=== PATIENT | male | born 1965 | race Caucasian/White ===

== ENCOUNTER → 2017-10-02 06:19 | Outpatient (CLI) | payer MEDICARE, SELFPAY ==
--- NOTE | 2017-10-02 06:23 | NM_ITS ---
CARDIOLITE SPECT MYOCARDIAL PERFUSION SCAN, REST AND STRESS: EXERCISE STRESS [facility] REVIEW QGS EF AND WALL MOTION EVALUATION: QPS - PERFUSION EVALUATION HISTORY: Chest pain, SOB, HTN, CAD, Tobacco use DOSE: 10.64 mCi technetium 99m mibi intravenously at rest followed by 32.1 mCi technetium 99m mibi following the intravenous ministration of 0.4 mg of Lexiscan. Resting blood pressure is 147/94. Stress blood pressure 148/85. FINDINGS: Ejection fraction is calculated to be 45%. SPECT images: Stress images reveal decreased activity throughout the inferior and lateral wall while rest images reveal significant improvement in the lateral wall with persistent decrease in the inferior wall. Gated images calculated ejection fraction of 45%. With inferior and lateral wall hypokinesis. This is a high risk abnormal stress test IMPRESSION: Previous transmural myocardial infarction involving the inferior wall without reversible ischemia with a large amount of increased reversible ischemia mixed with the nontransmural myocardial lateral infarction. Mildly reduced ejection fraction with regional wall motion abnormality
--- NOTE | 2017-10-02 07:27 | HMH.ITSHM ---
ATORVASTATIN OMEPRAZOLE ASA LISINOPRIL AMLODIPINE METOPROLOL GABAPENTIN HYDROCODONE
== END ==
PROVIDERS: Family Provider Physician Assistant; PCP Physician Assistant; Visit Provider Internal Medicine
DX: R07.9 Chest pain, unspecified (principal); I25.118 Atherosclerotic heart disease of native coronary artery with other forms of angina pectoris; M54.42 Lumbago with sciatica, left side; K21.9 Gastro-esophageal reflux disease without esophagitis; Z95.5 Presence of coronary angioplasty implant and graft; F17.200 Nicotine dependence, unspecified, uncomplicated
CPT/HCPCS: 78452; 93017; A9502; J2785

== ENCOUNTER → 2018-01-01 10:05 | Outpatient (REF) | payer MEDICARE, SELFPAY ==
[2018-01-01 14:39] LABS: Amphetamine/Metha Screen,Urine Negative ng/mL (<1000); Barbiturates Screen,Urine Negative ng/mL (<200); Benzodiazepines Screen,Urine Negative ng/mL (200); Cannabinoid Screen,Urine Negative ng/mL (<50); Cocaine Screen,Urine Negative ng/g (<300); Methadone Screen,Urine Negative ng/mL (<300); Opiate Screen,Urine Positive ng/mL (<300); Phencyclidine Screen,Urine Negative ng/mL (<25)
== END ==
LOC: LAB 10:05
PROVIDERS: Visit Provider Physician Assistant
DX: Z79.899 Other long term (current) drug therapy (principal)
CPT/HCPCS: 80305

== ENCOUNTER → 2018-03-28 14:17 | Outpatient (REF) | payer MEDICARE, SELFPAY ==
[2018-03-28 18:04] LABS: Basophils # 0.1 K/mm3 (0-0.2); Basophils % 0.8 % (0.1-2.0); Eosinophils # 0.1 K/mm3 (0.0-0.4); Eosinophils % 1.1 % (0.1-12.0); Hematocrit 41.9 % (42.0-52.0); Hemoglobin 13.8 g/dL (14.1-18.0); Lymphocytes # 2.4 K/mm3 (0.7-4.5); Lymphocytes % 26.8 K/mm3 (10-50); Mean Corpuscular Hemoglobin 29.4 pg (27.0-31.2); Mean Corpuscular Volume 89.2 fl (80-94); Monocytes # 0.5 K/mm3 (0.1-1.0); Monocytes % 5.2 % (1.7-9.3); Neutrophils # 5.9 K/mm3 (1.8-7.8); Neutrophils % 66.1 % (37.0-80.0); Platelet Count 210 K/mm3 (142-424); Red Cell Distribution Width 13.6 % (11.5-17.5); White Blood Count 8.9 K/mm3 (4.8-10.8)
[2018-03-28 18:23] LABS: Alanine Aminotransferase 25 U/L (12-78); Albumin Level 3.8 gm/dL (3.4-5.0); Albumin/Globulin Ratio 1.4 (1.1-1.8); Alkaline Phosphatase 92 U/L (46-116); Anion Gap 13.1 mEq/L (5-15); Aspartate Amino Transferase 14 U/L (15-37); Bilirubin,Total 0.3 mg/dL (0.2-1.0); Blood Urea Nitrogen 11 mg/dL (7-18); Calcium 8.5 mg/dL (8.5-10.1); Carbon Dioxide 27 mmol/L (21.0-32.0); Chloride 108 mmol/L (98-107); Chol/HDL Ratio 4.5 (1-3.5); Cholesterol 147 mg/dL (140-200); Creatinine,Serum 0.89 mg/dL (0.70-1.30); Estimated Glomerular Filt Rate 89 ml/min (>60); GFR (African American) 108 ML/MIN (>60); Globulin 2.7 gm/dl (1.3-3.2); Glucose 120 mg/dL (74-106); HDL Cholesterol 33 mg/dL (27-67); LDL Cholesterol 70 mg/dL (0-130); Potassium 4.1 mmoL/L (3.5-5.1); Sodium 144 mmol/L (136-145); Thyroid Stimulating Hormone 0.78 uIU/ml (0.358-3.740); Total Protein,Serum 6.5 gm/dL (6.4-8.2); Triglycerides 219 mg/dL (30-200); VLDL Cholesterol 44 mg/dL (0-40)
[2018-03-30 19:11] LABS: Vitamin D 25 Hydroxy 27.8 ng/mL (30.0-100.0)
== END ==
LOC: LAB 14:17
PROVIDERS: Visit Provider Physician Assistant
DX: I10 Essential (primary) hypertension (principal); E78.5 Hyperlipidemia, unspecified; E55.9 Vitamin D deficiency, unspecified
CPT/HCPCS: 80053; 80061; 82652; 84436; 84443; 85025

== ENCOUNTER → 2018-05-23 19:46 | Outpatient (CLI) | payer MEDICARE, SELFPAY ==
[2018-05-23 21:20] LABS: Amphetamine/Metha Screen,Urine Negative ng/mL (<1000); Barbiturates Screen,Urine Negative ng/mL (<200); Benzodiazepines Screen,Urine Negative ng/mL (<200); Cannabinoid Screen,Urine Negative ng/mL (<50); Cocaine Screen,Urine Negative ng/mL (<300); Methadone Screen,Urine Negative ng/mL (<300); Opiate Screen,Urine Positive ng/mL (<300); Phencyclidine Screen,Urine Negative ng/mL (<25)
== END ==
PROVIDERS: Visit Provider Physician Assistant
DX: Z79.899 Other long term (current) drug therapy (principal)
CPT/HCPCS: 80305

== ENCOUNTER → 2018-06-20 19:05 | Outpatient (CLI) | payer MEDICARE, SELFPAY | PROVIDERS: Visit Provider Physician Assistant | DX: J02.9 Acute pharyngitis, unspecified (principal) ==

== ENCOUNTER → 2018-09-12 18:44 | Outpatient (CLI) | payer MEDICARE, SELFPAY ==
[2018-09-12 19:04] LABS: Basophils # 0.1 K/mm3 (0-0.2); Basophils % 0.8 % (0.1-2.0); Eosinophils # 0.1 K/mm3 (0.0-0.4); Eosinophils % 1.3 % (0.1-12.0); Hematocrit 43.5 % (42.0-52.0); Hemoglobin 14.6 g/dL (14.1-18.0); Lymphocytes % 35.3 % (10-50); Mean Corpuscular HGB Conc 33.5 g/dL (31.8-35.4); Mean Corpuscular Hemoglobin 29.6 pg (27.0-31.2); Mean Corpuscular Volume 88.4 fl (80-94); Mean Platelet Volume 10.6 fl (7.4-10.4); Monocytes # 0.4 K/mm3 (0.1-1.0); Monocytes % 4.8 % (1.7-9.3); Neutrophils # 4.9 K/mm3 (1.8-7.8); Neutrophils % 57.7 % (37.0-80.0); Platelet Count 239 K/mm3 (142-424); Red Blood Count 4.92 M/mm3 (4.60-6.20); Red Cell Distribution Width 13.9 % (11.5-17.5); White Blood Count 8.5 K/mm3 (4.8-10.8)
[2018-09-12 19:52] LABS: Alanine Aminotransferase 30 U/L (12-78); Albumin Level 3.9 gm/dL (3.4-5.0); Albumin/Globulin Ratio 1.3 (1.1-1.8); Alkaline Phosphatase 87 U/L (46-116); Anion Gap 15.2 mEq/L (5-15); Aspartate Amino Transferase 14 U/L (15-37); Bilirubin,Total 0.2 mg/dL (0.2-1.0); Blood Urea Nitrogen 10 mg/dL (7-18); Calcium 8.6 mg/dL (8.5-10.1); Carbon Dioxide 26 mmol/L (21.0-32.0); Chloride 105 mmol/L (98-107); Chol/HDL Ratio 5.6 (1-3.5); Cholesterol 156 mg/dL (140-200); Creatinine,Serum 0.82 mg/dL (0.70-1.30); Estimated Glomerular Filt Rate 98 ml/min (>60); GFR (African American) 119 ML/MIN (>60); Glucose 92 mg/dL (74-106); HDL Cholesterol 28 mg/dL (27-67); LDL Cholesterol 66 mg/dL (0-130); Potassium 4.2 mmoL/L (3.5-5.1); Sodium 142 mmol/L (136-145); T4 (Thyroxine) 9.2 ug/dl (4.7-13.3); Thyroid Stimulating Hormone 0.74 uIU/ml (0.358-3.740); Total Protein,Serum 6.9 gm/dL (6.4-8.2); Triglycerides 309 mg/dL (30-200); VLDL Cholesterol 62 mg/dL (0-40)
[2018-09-12 20:43] LABS: Amphetamine/Metha Screen,Urine Negative ng/mL (<1000); Barbiturates Screen,Urine Negative ng/mL (<200); Benzodiazepines Screen,Urine Negative ng/mL (<200); Cannabinoid Screen,Urine Negative ng/mL (<50); Cocaine Screen,Urine Negative ng/mL (<300); Methadone Screen,Urine Negative ng/mL (<300); Opiate Screen,Urine Positive ng/mL (<300); Phencyclidine Screen,Urine Negative ng/mL (<25)
[2018-09-15 10:14] LABS: Vitamin D 25 Hydroxy 25.3 ng/mL (30.0-100.0)
== END ==
PROVIDERS: Visit Provider Physician Assistant
DX: I10 Essential (primary) hypertension (principal); E78.5 Hyperlipidemia, unspecified; E55.9 Vitamin D deficiency, unspecified; Z79.899 Other long term (current) drug therapy
CPT/HCPCS: 80053; 80061; 80305; 82652; 84436; 84443; 85025

== ENCOUNTER → 2019-07-30 14:07 | Outpatient (CLI) | payer MEDICARE, SELFPAY ==
--- NOTE | 2019-07-30 14:12 | XR_ITS ---
PROCEDURE: XR CHEST 2V CLINICAL HISTORY: tob dep COMPARISON: No exams were available for comparison FINDINGS: Heart size is borderline without CHF. The lungs are clear without infiltrates, suspicious nodules, or pleural effusions. No acute bony abnormalities. IMPRESSION: No acute findings. Dictated by: Burke Pierre 07/30/2019 14:51 Electronically signed by Burke Pierre in [facility] 07/30/2019 14:51
== END ==
PROVIDERS: PCP Physician Assistant; Visit Provider Physician Assistant
DX: E78.5 Hyperlipidemia, unspecified (principal); F17.200 Nicotine dependence, unspecified, uncomplicated; I10 Essential (primary) hypertension; I25.10 Atherosclerotic heart disease of native coronary artery without angina pectoris
CPT/HCPCS: 71046

== ENCOUNTER → 2020-05-20 16:05 | Outpatient (CLI) | payer MEDICARE, SELFPAY ==
[2020-05-20 18:07] LABS: Basophils # 0.1 K/mm3 (0-0.2); Eosinophils # 0.1 K/mm3 (0.0-0.4); Eosinophils % 0.9 % (0.1-12.0); Hematocrit 46.5 % (42.0-52.0); Hemoglobin 14.8 g/dL (14.1-18.0); Lymphocytes # 2.7 K/mm3 (0.7-4.5); Lymphocytes % 31.3 % (10-50); Mean Corpuscular HGB Conc 31.8 g/dL (31.8-35.4); Mean Corpuscular Hemoglobin 28.6 pg (27.0-31.2); Mean Corpuscular Volume 89.8 fl (80-94); Monocytes # 0.5 K/mm3 (0.1-1.0); Monocytes % 5.9 % (1.7-9.3); Neutrophils # 5.3 K/mm3 (1.8-7.8); Platelet Count 252 K/mm3 (142-424); Red Blood Count 5.18 M/mm3 (4.60-6.20); Red Cell Distribution Width 13.5 % (11.5-17.5); White Blood Count 8.7 K/mm3 (4.8-10.8)
[2020-05-20 18:10] LABS: Hemoglobin A1C 5.8 % (4.0-6.0)
[2020-05-20 18:11] LABS: Alanine Aminotransferase 25 U/L (12-78); Albumin Level 4.5 g/dl (3.5-5.0); Albumin/Globulin Ratio 1.7 (1.1-1.8); Alkaline Phosphatase 77 U/L (38-126); Anion Gap 13.6 mEq/L (5-15); Aspartate Amino Transferase 28 U/L (17-59); Bilirubin,Total 0.3 mg/dl (0.2-1.3); Blood Urea Nitrogen 13 mg/dl (9-20); Calcium 9.2 mg/dl (8.4-10.2); Carbon Dioxide 27 mmol/L (22.0-30.0); Chloride 102 mmol/L (98-107); Chol/HDL Ratio 5.4 (1-3.5); Cholesterol 178 mg/dl (140-200); Estimated Glomerular Filt Rate 78 ml/min (>60); GFR (African American) 94 ML/MIN (>60); Globulin 2.7 g/dL (1.3-3.2); Glucose 94 mg/dl (74-100); HDL Cholesterol 33 mg/dl (40-60); Potassium 4.6 mmoL/L (3.5-5.1); Sodium 138 mmol/L (136-145); Total Protein,Serum 7.2 g/dl (6.3-8.2); Triglycerides 278 mg/dl (30-150); VLDL Cholesterol 56 mg/dL (0-40)
[2020-05-20 18:23] LABS: Direct LDL Cholesterol 113.27 mg/dL (100-129)
[2020-05-20 18:28] LABS: Free T4 (Free Thyroxine) 1.03 ng/dl (0.78-2.19)
[2020-05-20 18:29] LABS: 25-OH Vitamin D, Total 43.3 ng/mL (30-100)
[2020-05-20 18:42] LABS: Thyroid Stimulating Hormone 1.08 uIU/mL (0.465-4.68)
[2020-05-22 10:36] LABS: PSA, Free 0.21 ng/mL; Prostate Specific Ag 0.5 ng/mL (0.0-4.0)
== END ==
PROVIDERS: Visit Provider Physician Assistant
DX: E55.9 Vitamin D deficiency, unspecified (principal); R06.00 Dyspnea, unspecified; F17.200 Nicotine dependence, unspecified, uncomplicated; I11.9 Hypertensive heart disease without heart failure; Z79.899 Other long term (current) drug therapy; M50.20 Other cervical disc displacement, unspecified cervical region
CPT/HCPCS: 80053; 80061; 82306; 83036; 84153; 84154; 84439; 84443; 85025

== ENCOUNTER → 2020-07-28 14:07 | Outpatient (CLI) | payer MEDICARE, SELFPAY ==
--- NOTE | 2020-07-28 14:13 | XR_ITS ---
PROCEDURE: XR CHEST 2V CLINICAL HISTORY: tobacco use Heart disease COMPARISON: DX XR CHEST 2V from 07/30/2019 FINDINGS: Mild cardiomegaly without failure. The lungs are clear without infiltrates, suspicious nodules, or pleural effusions. There is an anterior cervical bone plate IMPRESSION: Mild cardiomegaly. No acute finding Dictated by: Marcus Juarez MD 07/28/2020 14:37 Marcus Juarez MD in [facility] 07/28/2020 14:37
== END ==
PROVIDERS: PCP Physician Assistant; Visit Provider Nurse Practitioner Family
DX: I25.10 Atherosclerotic heart disease of native coronary artery without angina pectoris (principal); Z72.0 Tobacco use
CPT/HCPCS: 71046

== ENCOUNTER → 2021-01-06 17:57 | Outpatient (CLI) | payer MEDICARE, SELFPAY ==
[2021-01-06 20:09] LABS: Opiate Screen,Urine Positive ng/ml (<300)
[2021-01-06 20:10] LABS: Phencyclidine Screen,Urine Negative ng/ml (<25)
[2021-01-06 20:13] LABS: Amphetamine/Metha Screen,Urine Negative ng/ml (<1000)
[2021-01-06 20:14] LABS: Barbiturates Screen,Urine Negative ng/ml (<200); Benzodiazepines Screen,Urine Negative ng/ml (<200)
[2021-01-06 20:15] LABS: Cannabinoid Screen,Urine Negative ng/ml (<50)
[2021-01-06 20:16] LABS: Cocaine Screen,Urine Negative ng/ml (<300)
[2021-01-06 20:21] LABS: Methadone Screen,Urine Negative ng/ml (<300)
== END ==
PROVIDERS: Visit Provider Physician Assistant
DX: Z79.899 Other long term (current) drug therapy (principal)
CPT/HCPCS: 80305

== ENCOUNTER → 2021-04-28 18:21 | Outpatient (CLI) | payer MEDICARE, SELFPAY ==
[2021-04-28 19:25] LABS: Amphetamine/Metha Screen,Urine Negative ng/ml (<1000); Benzodiazepines Screen,Urine Negative ng/ml (<200)
[2021-04-28 19:26] LABS: Barbiturates Screen,Urine Negative ng/ml (<200); Cannabinoid Screen,Urine Negative ng/ml (<50)
[2021-04-28 19:27] LABS: Cocaine Screen,Urine Negative ng/ml (<300)
[2021-04-28 19:28] LABS: Methadone Screen,Urine Negative ng/ml (<300); Opiate Screen,Urine Positive ng/ml (<300)
[2021-04-28 19:29] LABS: Phencyclidine Screen,Urine Negative ng/ml (<25)
== END ==
PROVIDERS: Visit Provider Physician Assistant
DX: Z79.899 Other long term (current) drug therapy (principal)
CPT/HCPCS: 80305

== ENCOUNTER → 2021-06-22 13:57 | Outpatient (CLI) | payer MEDICARE, SELFPAY ==
[2021-06-22 16:10] LABS: Phencyclidine Screen,Urine Negative ng/ml (<25)
[2021-06-22 16:19] LABS: Amphetamine/Metha Screen,Urine Negative ng/ml (<1000)
[2021-06-22 16:21] LABS: Cannabinoid Screen,Urine Negative ng/ml (<50)
[2021-06-22 16:22] LABS: Barbiturates Screen,Urine Negative ng/ml (<200)
[2021-06-22 16:23] LABS: Benzodiazepines Screen,Urine Negative ng/ml (<200); Opiate Screen,Urine Positive ng/ml (<300)
[2021-06-22 16:24] LABS: Cocaine Screen,Urine Negative ng/ml (<300); Methadone Screen,Urine Negative ng/ml (<300)
== END ==
PROVIDERS: Visit Provider Emergency Medicine
DX: Z79.899 Other long term (current) drug therapy (principal)
CPT/HCPCS: 80305

== ENCOUNTER → 2021-08-20 16:49 | Outpatient (CLI) | payer MEDICARE, SELFPAY ==
[2021-08-20 13:49] LABS: Amphetamine/Metha Screen,Urine Negative ng/ml (<1000)
[2021-08-20 13:50] LABS: Barbiturates Screen,Urine Negative ng/ml (<200)
[2021-08-20 13:51] LABS: Benzodiazepines Screen,Urine Negative ng/ml (<200); Cannabinoid Screen,Urine Negative ng/ml (<50)
[2021-08-20 13:52] LABS: Cocaine Screen,Urine Negative ng/ml (<300)
[2021-08-20 13:53] LABS: Methadone Screen,Urine Negative ng/ml (<300); Opiate Screen,Urine Positive ng/ml (<300)
[2021-08-20 13:54] LABS: Phencyclidine Screen,Urine Negative ng/ml (<25)
== END ==
PROVIDERS: Visit Provider Emergency Medicine
DX: Z79.899 Other long term (current) drug therapy (principal)
CPT/HCPCS: 80305

== ENCOUNTER → 2021-10-11 15:51 | Outpatient (CLI) | payer MEDICARE, SELFPAY ==
[2021-10-11 13:34] LABS: Basophils # 0.1 K/mm3 (0-0.2); Basophils % 0.7 % (0.1-2.0); Eosinophils # 0.1 K/mm3 (0.0-0.4); Eosinophils % 0.9 % (0.1-12.0); Hematocrit 44.6 % (42.0-52.0); Hemoglobin 14.7 g/dL (14.1-18.0); Lymphocytes % 24.2 % (10-50); Mean Corpuscular HGB Conc 32.9 g/dL (31.8-35.4); Mean Corpuscular Hemoglobin 30.8 pg (27.0-31.2); Mean Corpuscular Volume 93.6 fl (80-94); Mean Platelet Volume 11.6 fl (7.4-10.4); Monocytes # 0.6 K/mm3 (0.1-1.0); Neutrophils # 8.5 K/mm3 (1.8-7.8); Neutrophils % 69.2 % (37.0-80.0); Platelet Count 251 K/mm3 (142-424); Red Blood Count 4.77 M/mm3 (4.60-6.20); Red Cell Distribution Width 13.7 % (11.5-17.5); White Blood Count 12.2 K/mm3 (4.8-10.8)
[2021-10-11 13:44] LABS: Alanine Aminotransferase 21 U/L (12-78); Albumin Level 4.6 g/dl (3.5-5.0); Alkaline Phosphatase 66 U/L (38-126); Anion Gap 12.5 mEq/L (5-15); Aspartate Amino Transferase 29 U/L (17-59); Bilirubin,Total 0.4 mg/dl (0.2-1.3); Blood Urea Nitrogen 10 mg/dl (9-20); Carbon Dioxide 27 mmol/L (22.0-30.0); Chloride 106 mmol/L (98-107); Chol/HDL Ratio 4.1 (1-3.5); Cholesterol 153 mg/dl (140-200); Estimated Glomerular Filt Rate 77 ml/min (>60); GFR (African American) 94 ML/MIN (>60); Globulin 2.3 g/dL (1.3-3.2); Glucose 107 mg/dl (74-100); HDL Cholesterol 37 mg/dl (40-60); Potassium 4.5 mmoL/L (3.5-5.1); Sodium 141 mmol/L (136-145); Total Protein,Serum 6.9 g/dl (6.3-8.2); Triglycerides 165 mg/dl (30-150); VLDL Cholesterol 33 mg/dL (0-40)
[2021-10-11 13:55] LABS: Direct LDL Cholesterol 82.58 mg/dL (100-129)
[2021-10-11 13:59] LABS: 25-OH Vitamin D, Total 37.9 ng/mL (30-100)
[2021-10-11 14:17] LABS: Prostate Specific Ag Screen 0.5 ng/ml (0.0-4.0); Thyroid Stimulating Hormone 0.56 uIU/mL (0.465-4.68)
[2021-10-11 14:36] LABS: Vitamin B12 321 pg/mL (239-931)
== END ==
PROVIDERS: Visit Provider Physician Assistant
DX: E55.9 Vitamin D deficiency, unspecified (principal); Z00.00 Encounter for general adult medical examination without abnormal findings; I11.9 Hypertensive heart disease without heart failure; Z12.5 Encounter for screening for malignant neoplasm of prostate; F17.200 Nicotine dependence, unspecified, uncomplicated; R06.00 Dyspnea, unspecified
CPT/HCPCS: 80053; 80061; 82306; 82607; 84443; 85025; G0103

== ENCOUNTER 2022-02-22 14:00 | Outpatient (RCR) | payer MEDICARE, SELFPAY | END 2022-03-29 09:43 | disposition home or self-care (01) | LOC: PT.CARL 14:00 | PROVIDERS: PCP Physician Assistant; Visit Provider Physician Assistant | DX: M54.2 Cervicalgia (principal); M54.12 Radiculopathy, cervical region | CPT/HCPCS: 20560; 97010; 97014; 97110; 97140; 97163; 97164; G0283 ==

== ENCOUNTER → 2022-05-04 07:59 | Outpatient (CLI) | payer MEDICARE, SELFPAY ==
--- NOTE | 2022-05-04 07:59 | MR_ITS ---
FINAL REPORT CLINICAL HISTORY: neck pain radiating down right arm. prior hx neck surgery 2010. neck pain. right arm tingling for 10 months. no injury or trauma. FINDINGS: Multiplanar MR imaging of the cervical spine was performed without contrast. On the sagittal T2-weighted images, disc degeneration is seen throughout. There is fusion of C3-4 and C5-C7. There is no evidence of fracture. The vertebral alignment is normal. The cervical spinal cord has an unremarkable appearance without evidence of mass, edema or syrinx. The cervicomedullary junction is normal. C2-3: An annular bulge is present. There is no significant canal stenosis or neural foraminal narrowing. C3-4: Level is fused. There is mild right neural foraminal narrowing. C4-5: An annular bulge and uncovertebral osteophytes are present. There is severe right and moderate left neural foraminal narrowing. There is mild central canal stenosis with an AP diameter of the thecal sac of 7 mm. C5-6: This level is fused. There is mild left neural foraminal narrowing. C6-7: This level is fused. There is moderate right neural foraminal narrowing. C7-T1: An annular bulge is present with mild bilateral neural foraminal narrowing. IMPRESSION: Multilevel degenerative and postoperative change as detailed above. Mild central canal stenosis at C4-5 Reviewed, Interpreted and Dictated by Frank Landon III, MD Transcribed by Ely García Authenticated and . [facility]
== END ==
PROVIDERS: PCP Physician Assistant; Visit Provider Physician Assistant
DX: M54.12 Radiculopathy, cervical region (principal)
CPT/HCPCS: 72141; 76376

== ENCOUNTER → 2022-08-12 10:25 | Outpatient (CLI) | payer MEDICARE, SELFPAY ==
[2022-08-12 12:23] LABS: Alanine Aminotransferase 20 U/L (12-78); Albumin Level 4.6 g/dl (3.5-5.0); Alkaline Phosphatase 62 U/L (38-126); Aspartate Amino Transferase 26 U/L (17-59); Bilirubin,Direct 0.2 mg/dl (0.0-0.4); Bilirubin,Indirect 0.2 mg/dL (0.0-0.9); Bilirubin,Total 0.4 mg/dl (0.2-1.3); Bilirubin,Unconjugated 0.2 mg/dL (0.0-1.1); Chol/HDL Ratio 4.1 (1-3.5); Cholesterol 135 mg/dl (140-200); HDL Cholesterol 33 mg/dl (40-60); Total Protein,Serum 6.9 g/dl (6.3-8.2); Triglycerides 131 mg/dl (30-150); VLDL Cholesterol 26 mg/dL (0-40)
[2022-08-12 12:34] LABS: Direct LDL Cholesterol 80.43 mg/dL (100-129)
== END ==
PROVIDERS: PCP Physician Assistant; Visit Provider Nurse Practitioner Family
DX: E78.2 Mixed hyperlipidemia (principal); F17.200 Nicotine dependence, unspecified, uncomplicated; I11.9 Hypertensive heart disease without heart failure; I25.10 Atherosclerotic heart disease of native coronary artery without angina pectoris; Z95.5 Presence of coronary angioplasty implant and graft
CPT/HCPCS: 36415; 80061; 80076

== ENCOUNTER → 2023-05-15 07:36 | Outpatient (CLI) | payer MEDICARE, SELFPAY ==
[2023-05-15 20:04] LABS: Basophils # 0.1 K/mm3 (0-0.2); Basophils % 0.6 % (0.1-2.0); Eosinophils # 0.1 K/mm3 (0.0-0.4); Eosinophils % 0.9 % (0.1-12.0); Hematocrit 44.7 % (42.0-52.0); Hemoglobin 15.2 g/dL (14.1-18.0); Lymphocytes % 30.3 % (10-50); Mean Corpuscular HGB Conc 33.9 g/dL (31.8-35.4); Mean Corpuscular Hemoglobin 30.9 pg (27.0-31.2); Mean Corpuscular Volume 91.3 fl (80-94); Monocytes # 0.6 K/mm3 (0.1-1.0); Monocytes % 4.3 % (1.7-9.3); Neutrophils # 8.5 K/mm3 (1.8-7.8); Neutrophils % 63.9 % (37.0-80.0); Platelet Count 216 K/mm3 (142-424); White Blood Count 13.3 K/mm3 (4.8-10.8)
[2023-05-15 20:47] LABS: Erythrocyte Sedimentation Rate 11 mm/hr (0-20)
[2023-05-15 22:57] LABS: Alanine Aminotransferase 23 U/L (12-78); Albumin Level 4.7 g/dl (3.5-5.0); Albumin/Globulin Ratio 1.9 (1.1-1.8); Alkaline Phosphatase 70 U/L (38-126); Anion Gap 17.4 mEq/L (5-15); Aspartate Amino Transferase 33 U/L (17-59); Bilirubin,Total 0.3 mg/dl (0.2-1.3); Blood Urea Nitrogen 12 mg/dl (9-20); Calcium 9.1 mg/dl (8.4-10.2); Carbon Dioxide 25 mmol/L (22.0-30.0); Chloride 98 mmol/L (98-107); Estimated Glomerular Filt Rate 87 ml/min (>60); GFR (African American) 105 ML/MIN (>60); Globulin 2.5 g/dL (1.3-3.2); Glucose 71 mg/dl (74-100); Potassium 4.4 mmoL/L (3.5-5.1); Sodium 136 mmol/L (136-145); Total Protein,Serum 7.2 g/dl (6.3-8.2)
== END ==
PROVIDERS: PCP Internal Medicine; Visit Provider Internal Medicine
DX: E78.5 Hyperlipidemia, unspecified (principal); G89.29 Other chronic pain; M54.41 Lumbago with sciatica, right side; M54.42 Lumbago with sciatica, left side
CPT/HCPCS: 80053; 85025; 85651

== ENCOUNTER → 2023-06-21 07:44 | Outpatient (CLI) | payer MEDICARE, SELFPAY ==
[2023-06-21 19:35] LABS: Amphetamine/Metha Screen,Urine Negative ng/ml (<1000); Benzodiazepines Screen,Urine Negative ng/ml (<200)
[2023-06-21 19:36] LABS: Barbiturates Screen,Urine Negative ng/ml (<200)
[2023-06-21 19:37] LABS: Cannabinoid Screen,Urine Negative ng/ml (<50); Methadone Screen,Urine Negative ng/ml (<300)
[2023-06-21 19:38] LABS: Cocaine Screen,Urine Negative ng/ml (<300)
[2023-06-21 19:39] LABS: Opiate Screen,Urine Positive ng/ml (<300)
[2023-06-21 19:40] LABS: Phencyclidine Screen,Urine Negative ng/ml (<25)
== END ==
PROVIDERS: PCP Internal Medicine; Visit Provider Physician Assistant
DX: M51.16 Intervertebral disc disorders with radiculopathy, lumbar region (principal)
CPT/HCPCS: 80305

== ENCOUNTER 2023-08-09 13:46 | Outpatient (CLI) | payer MEDICARE, SELFPAY ==
[2023-08-09 14:15] LABS: Basophils # 0.1 K/mm3 (0-0.2); Basophils % 0.7 % (0.1-2.0); Eosinophils # 0.1 K/mm3 (0.0-0.4); Eosinophils % 1.2 % (0.1-12.0); Hemoglobin 15.3 g/dL (14.1-18.0); Lymphocytes # 2.9 K/mm3 (0.7-4.5); Mean Corpuscular HGB Conc 33.2 g/dL (31.8-35.4); Mean Corpuscular Hemoglobin 30.4 pg (27.0-31.2); Mean Corpuscular Volume 91.6 fl (80-94); Mean Platelet Volume 9.1 fl (7.4-10.4); Monocytes # 0.5 K/mm3 (0.1-1.0); Monocytes % 4.8 % (1.7-9.3); Neutrophils # 7.1 K/mm3 (1.8-7.8); Neutrophils % 66.3 % (37.0-80.0); Platelet Count 216 K/mm3 (142-424); Red Blood Count 5.02 M/mm3 (4.60-6.20); Red Cell Distribution Width 13.9 % (11.5-17.5); White Blood Count 10.7 K/mm3 (4.8-10.8)
[2023-08-09 15:09] LABS: Alanine Aminotransferase 25 U/L (12-78); Albumin Level 4.6 g/dl (3.5-5.0); Alkaline Phosphatase 62 U/L (38-126); Anion Gap 10.7 mEq/L (5-15); Aspartate Amino Transferase 27 U/L (17-59); Bilirubin,Direct 0.2 mg/dl (0.0-0.4); Bilirubin,Indirect 0.1 mg/dL (0.0-0.9); Bilirubin,Total 0.3 mg/dl (0.2-1.3); Bilirubin,Unconjugated 0.1 mg/dL (0.0-1.1); Blood Urea Nitrogen 12 mg/dl (9-20); Calcium 9.4 mg/dl (8.4-10.2); Carbon Dioxide 29 mmol/L (22.0-30.0); Chloride 104 mmol/L (98-107); Chol/HDL Ratio 4.4 (1-3.5); Cholesterol 148 mg/dl (140-200); Estimated Glomerular Filt Rate 99 ml/min (>60); GFR (African American) 120 ML/MIN (>60); Glucose 105 mg/dl (74-100); HDL Cholesterol 34 mg/dl (40-60); Magnesium 2.3 mg/dl (1.6-2.3); Potassium 4.7 mmoL/L (3.5-5.1); Sodium 139 mmol/L (136-145); Total Protein,Serum 6.7 g/dl (6.3-8.2); Triglycerides 125 mg/dl (30-150); VLDL Cholesterol 25 mg/dL (0-40)
[2023-08-09 15:20] LABS: Direct LDL Cholesterol 91.47 mg/dL (100-129)
[2023-08-09 15:27] LABS: Free T4 (Free Thyroxine) 0.99 ng/dl (0.78-2.19)
[2023-08-09 15:41] LABS: Thyroid Stimulating Hormone 1.13 uIU/mL (0.465-4.68)
== END 2023-08-09 23:59 ==
LOC: LAB 13:46
PROVIDERS: PCP Physician Assistant; Visit Provider Physician Assistant
DX: E78.5 Hyperlipidemia, unspecified (principal); F17.200 Nicotine dependence, unspecified, uncomplicated; I11.9 Hypertensive heart disease without heart failure; I25.10 Atherosclerotic heart disease of native coronary artery without angina pectoris; R94.31 Abnormal electrocardiogram [ECG] [EKG]; Z95.5 Presence of coronary angioplasty implant and graft; I42.8 Other cardiomyopathies
CPT/HCPCS: 36415; 80048; 80061; 80076; 83735; 84439; 84443; 85025

== ENCOUNTER 2023-09-01 12:53 | Outpatient (CLI) | payer MEDICARE, SELFPAY ==
--- NOTE | 2023-09-01 12:55 | CA_ITS ---
FINAL REPORT TECHNIQUE: Real-time imaging was performed of the extracranial carotid arteries in transverse and longitudinal planes with color duplex evaluation of blood flow velocity. Spectral analysis was performed. The cervicovertebral arteries were also examined. Stenosis evaluation based on elevated velocity criteria. CLINICAL HISTORY: HLD,SMOKER,SANCHEZ,HTN FINDINGS: FINDINGS: RIGHT CAROTID: CCA PSV: 92 cm/sec ICA PSV: 80 cm/sec ECA PSV: 92 cm/sec ICA/CCA systolic flow velocity ratio: 0.9 Moderate atherosclerotic plaque is noted at the bifurcation. Narrowing is classified in the less than 50% category. LEFT CAROTID: CCA PSV: 79 cm/sec ICA PSV: 84 cm/sec ECA PSV: 64 cm/sec ICA/CCA systolic flow velocity ratio: 1.0 Moderate atherosclerotic plaque is noted at the bifurcation. Narrowing is classified in the less than 50% category. VERTEBRALS: Vertebral arteries are patent with antegrade flow and expected spectral waveforms. IMPRESSION: Moderate plaque at the bifurcations bilaterally. Less than 50% carotid artery stenosis bilaterally. Patent vertebral arteries. Reviewed, Interpreted and Dictated by Elijah Denton MD Transcribed by Lilia Gonzales Authenticated and [facility]
--- NOTE | 2023-09-01 12:55 | CA_ITS ---
APPROVED REPORT EXAM: Comprehensive 2D, Doppler, and color-flow Echocardiogram Surveillance Operator: Aliyah Mejia RVT Ht: 5 ft 8 in Wt: 161lbs BSA: 1.86 BP: 139/68 mmHg Indications: CAD,CM,ABN EKG,SMOKER,HTN,HLD M-Mode Dimensions RVDd 3.17 cm (0.9-2.6) LA Diam 3.77 cm (1.9-4.0) LVDd 5.60 cm (3.5-5.7) LVDs 4.22 cm (3.5-5.7) IVSd 0.70 cm (0.6-1.1) PWd 0.51 cm (0.6-1.1) EF (Teich) 48.30% FS 24.60% EDV (Teich) 153.70 mL TAPSE 2.69 (<1.7) ESV (Teich) 79.50 mL LV Diastology E Decel Time 150 (160-240 msec) E/A Ratio 1.0 Aortic Valve MAGY Index 1.37 cm2/m2 AoV Peak Rubio. 154.0 (50-130 cm/s) AO Peak GR. 9.50 mmHg AO Mean GR. 5.00 (<5 mmHg) AO VTI 33.6 (18-25 cm) MAGY (VTI) 2.62 (2.5-4.5 cm2) Mitral Valve MV E Max Rubio. 72.0 (40-130 cm/s) MV A Velocity 71.0 (40-130 cm/s) E/A Ratio 1.01 MV PHT 44.0 ms Pulmonary Valve PV Peak Velocity 70.0 (50-150 cm/s) Left Ventricle The left ventricle is normal size. The left ventricular systolic function is low-normal. There is normal left ventricular wall thickness. There is mild hypokinesis of the inferior and inferolateral LV woodward. The left ventricular diastolic function is normal. LVEF is 50% Right Ventricle The right ventricle is normal size. The right ventricular systolic function is normal. Atria The left atrium size is normal. The right atrium size is normal. There is no Doppler evidence of interatrial shunt. Aortic Valve The aortic valve opens well. There is no aortic valvular stenosis. No aortic regurgitation is present. Mitral Valve The mitral valve is normal in structure. No evidence of mitral valve stenosis. Trace mitral regurgitation. Tricuspid Valve The tricuspid valve leaflets are thin and pliable. Trace tricuspid regurgitation. There is insufficient TR jet to estimate RVSP. Pulmonic Valve The pulmonary valve is normal in structure. Trace pulmonic regurgitation. Great Vessels The aortic root is normal in size. The ascending aorta is normal in size. IVC is normal in size and collapses >50% with inspiration. Pericardium There is no pericardial effusion. Other Information Study Quality: Fair Conclusion Low-normal LV systolic function (LVEF 50%). Mild hypokinesis of the inferior and inferolateral LV woodward. No significant valvular stenosis or regurgitation. Electronically signed by : Madina Chiang MD 09/04/2023 19:57:02
--- NOTE | 2023-09-01 12:55 | CA_ITS ---
FINAL REPORT TECHNIQUE: Arterial duplex Doppler evaluation of the right upper extremity with spectral analysis. CLINICAL HISTORY: CLAUDICATION OF RUE,HTN,SMOKER,HLD,CAD FINDINGS: Waveforms are noted to be triphasic at all levels of the upper extremity. No stenosis is seen in the arteries of the right upper extremity. IMPRESSION: Triphasic waveforms with no levels of stenosis or occlusion identified. Reviewed, Interpreted and Dictated by Elijah Denton MD Transcribed by Lilia Gonzales Authenticated and [facility]
== END 2023-09-01 23:59 ==
LOC: RT 12:55
PROVIDERS: PCP Physician Assistant; Visit Provider Physician Assistant
DX: I25.10 Atherosclerotic heart disease of native coronary artery without angina pectoris; I11.9 Hypertensive heart disease without heart failure; I42.8 Other cardiomyopathies; R20.0 Anesthesia of skin; R94.31 Abnormal electrocardiogram [ECG] [EKG]; E78.5 Hyperlipidemia, unspecified; F17.200 Nicotine dependence, unspecified, uncomplicated; Z95.5 Presence of coronary angioplasty implant and graft; I70.213 Atherosclerosis of native arteries of extremities with intermittent claudication, bilateral legs
CPT/HCPCS: 93306; 93880; 93931

== ENCOUNTER 2024-02-09 16:14 | Outpatient (CLI) | payer MEDICARE, SELFPAY ==
[2024-02-09 16:24] LABS: Basophils # 0.1 K/mm3 (0-0.2); Basophils % 0.7 % (0.1-2.0); Eosinophils # 0.1 K/mm3 (0.0-0.4); Eosinophils % 1.5 % (0.1-12.0); Hematocrit 42.3 % (42.0-52.0); Hemoglobin 14.2 g/dL (14.1-18.0); Lymphocytes % 32.8 % (10-50); Mean Corpuscular HGB Conc 33.6 g/dL (31.8-35.4); Mean Corpuscular Hemoglobin 30.7 pg (27.0-31.2); Mean Corpuscular Volume 91.5 fl (80-94); Mean Platelet Volume 12.6 fl (7.4-10.4); Monocytes # 0.4 K/mm3 (0.1-1.0); Monocytes % 4.8 % (1.7-9.3); Neutrophils # 5.4 K/mm3 (1.8-7.8); Neutrophils % 60.3 % (37.0-80.0); Platelet Count 210 K/mm3 (142-424); Red Blood Count 4.62 M/mm3 (4.60-6.20); Red Cell Distribution Width 14.3 % (11.5-17.5)
[2024-02-09 16:53] LABS: Alanine Aminotransferase 21 U/L (12-78); Albumin Level 4.3 g/dl (3.5-5.0); Albumin/Globulin Ratio 1.8 (1.1-1.8); Alkaline Phosphatase 61 U/L (38-126); Anion Gap 14.5 mEq/L (5-15); Aspartate Amino Transferase 28 U/L (17-59); Bilirubin,Total 0.3 mg/dl (0.2-1.3); Blood Urea Nitrogen 12 mg/dl (9-20); Calcium 8.9 mg/dl (8.4-10.2); Carbon Dioxide 23 mmol/L (22.0-30.0); Chloride 103 mmol/L (98-107); Chol/HDL Ratio 3.8 (1-3.5); Cholesterol 129 mg/dl (140-200); Estimated Glomerular Filt Rate 86 ml/min (>60); GFR (African American) 105 ML/MIN (>60); Globulin 2.4 g/dL (1.3-3.2); Glucose 81 mg/dl (74-100); HDL Cholesterol 34 mg/dl (40-60); Potassium 4.5 mmoL/L (3.5-5.1); Sodium 136 mmol/L (136-145); Total Protein,Serum 6.7 g/dl (6.3-8.2); Triglycerides 125 mg/dl (30-150); VLDL Cholesterol 25 mg/dL (0-40)
[2024-02-09 17:09] LABS: 25-OH Vitamin D, Total 65.6 ng/mL (30-100)
[2024-02-09 17:23] LABS: Prostate Specific Ag Screen 0.5 ng/ml (0.0-4.0); Thyroid Stimulating Hormone 1.88 uIU/mL (0.465-4.68)
== END 2024-02-09 23:59 | disposition home or self-care (01) ==
LOC: LAB.DROPOF 16:15
PROVIDERS: PCP Physician Assistant; Visit Provider Physician Assistant
DX: I11.9 Hypertensive heart disease without heart failure (principal); I25.118 Atherosclerotic heart disease of native coronary artery with other forms of angina pectoris; R53.83 Other fatigue; E55.9 Vitamin D deficiency, unspecified; E78.5 Hyperlipidemia, unspecified; Z12.5 Encounter for screening for malignant neoplasm of prostate; F17.210 Nicotine dependence, cigarettes, uncomplicated; Z68.24 Body mass index [BMI] 24.0-24.9, adult
CPT/HCPCS: 80050; 80053; 80061; 82306; 84443; 85025; G0103

== ENCOUNTER 2024-04-12 12:57 | Outpatient (CLI) | payer MEDICARE, SELFPAY ==
--- NOTE | 2024-04-12 13:03 | XR_ITS ---
FINAL REPORT CLINICAL HISTORY: back pain FINDINGS: LUMBAR SPINE Three views demonstrate no acute fracture. The disc spaces are well preserved. There is mild anterior osteophyte formation at L3-4 and L4-5. There is no malalignment. IMPRESSION: No acute process. Reviewed, Interpreted and Dictated by Elijah Denton MD Transcribed by Ely García Authenticated and [facility]
--- NOTE | 2024-04-12 13:03 | XR_ITS ---
FINAL REPORT CLINICAL HISTORY: left sided pleuritic pain COMPARISON: 07/28/2020 FINDINGS: TWO-VIEW CHEST The heart size is normal. The mediastinum is normal. The lungs are clear. There is no pneumothorax. Note is made of cervical fusion hardware. IMPRESSION: No acute cardiopulmonary process. Reviewed, Interpreted and Dictated by Elijah Denton MD Transcribed by Ely García Authenticated and [facility]
--- NOTE | 2024-04-12 13:03 | XR_ITS ---
FINAL REPORT CLINICAL HISTORY: back pain FINDINGS: THORACIC SPINE Three views demonstrate no acute fracture. The disc spaces are well preserved. There is no malalignment. There is thoracic scoliosis convex to the right measuring 5 degrees. Cervical fusion hardware is seen bridging C3-4, C5-6, and C6-7. IMPRESSION: No acute process. Reviewed, Interpreted and Dictated by Elijah Denton MD Transcribed by Ely García Authenticated and [facility]
== END 2024-04-12 23:59 | disposition home or self-care (01) ==
PROVIDERS: PCP Internal Medicine; Visit Provider Family Medicine
DX: R07.81 Pleurodynia (principal); M54.9 Dorsalgia, unspecified
CPT/HCPCS: 71046; 72072; 72100

== ENCOUNTER 2024-09-20 12:28 | Outpatient (CLI) | payer MEDICARE, SELFPAY ==
[2024-09-20 13:14] LABS: Anion Gap 9.7 mEq/L (5-15); Blood Urea Nitrogen 12 mg/dl (9-20); Calcium 9.3 mg/dl (8.4-10.2); Carbon Dioxide 28 mmol/L (22.0-30.0); Chloride 98 mmol/L (98-107); Estimated Glomerular Filt Rate 86 ml/min (>60); GFR (African American) 105 ML/MIN (>60); Glucose 89 mg/dl (74-100); Potassium 4.7 mmoL/L (3.5-5.1); Sodium 131 mmol/L (136-145)
== END 2024-09-20 23:59 | disposition home or self-care (01) ==
LOC: LAB 12:31
PROVIDERS: PCP Internal Medicine; Visit Provider Internal Medicine
DX: I25.10 Atherosclerotic heart disease of native coronary artery without angina pectoris (principal); I11.9 Hypertensive heart disease without heart failure; E78.2 Mixed hyperlipidemia
CPT/HCPCS: 36415; 80048

== ENCOUNTER 2024-10-01 09:55 | Outpatient (CLI) | payer MEDICARE, SELFPAY ==
[2024-10-01 18:12] LABS: Anion Gap 13.8 mEq/L (5-15); Blood Urea Nitrogen 12 mg/dl (9-20); Calcium 9.7 mg/dl (8.4-10.2); Carbon Dioxide 26 mmol/L (22.0-30.0); Chloride 98 mmol/L (98-107); Estimated Glomerular Filt Rate 86 ml/min (>60); GFR (African American) 105 ML/MIN (>60); Potassium 5.8 mmoL/L (3.5-5.1); Sodium 132 mmol/L (136-145)
[2024-10-01 18:53] LABS: Glucose 43 mg/dl (74-100)
== END 2024-10-01 23:59 | disposition home or self-care (01) ==
LOC: LAB.DROPOF 10-02 12:15
PROVIDERS: PCP Physician Assistant; Visit Provider Physician Assistant
DX: E87.1 Hypo-osmolality and hyponatremia (principal)
CPT/HCPCS: 80048

== ENCOUNTER 2024-10-08 09:17 | Outpatient (CLI) | payer MEDICARE, SELFPAY ==
[2024-10-08 10:20] LABS: Chloride 102 mmol/L (98-107); Sodium 138 mmol/L (136-145)
[2024-10-08 10:23] LABS: Blood Urea Nitrogen 10 mg/dl (9-20); Estimated Glomerular Filt Rate 86 ml/min (>60); GFR (African American) 105 ML/MIN (>60)
[2024-10-08 10:24] LABS: Calcium 9.3 mg/dl (8.4-10.2); Carbon Dioxide 29 mmol/L (22.0-30.0); Glucose 87 mg/dl (74-100)
[2024-10-08 10:32] LABS: Anion Gap 11.6 mEq/L (5-15); Potassium 4.6 mmoL/L (3.5-5.1)
== END 2024-10-08 23:59 | disposition home or self-care (01) ==
LOC: LAB 09:18
PROVIDERS: PCP Internal Medicine; Visit Provider Nurse Practitioner
DX: E87.1 Hypo-osmolality and hyponatremia (principal)
CPT/HCPCS: 36415; 80048

== ENCOUNTER 2024-10-29 17:46 | Outpatient (CLI) | payer MEDICARE, SELFPAY ==
[2024-10-29 20:32] LABS: Basophils # 0.1 K/mm3 (0-0.2); Basophils % 0.9 % (0.1-2.0); Eosinophils # 0.1 Kmm3 (0.0-0.4); Eosinophils % 1.3 % (0.1-12.0); Hematocrit 44.7 % (42.0-52.0); Hemoglobin 14.5 g/dL (14.1-18.0); Lymphocytes # 2.7 K/mm3 (0.7-4.5); Lymphocytes % 31.7 % (10-50); Mean Corpuscular HGB Conc 32.4 g/dL (31.8-35.4); Mean Corpuscular Volume 92.4 fl (80-94); Mean Platelet Volume 13.5 fl (7.4-10.4); Monocytes # 0.6 K/mm3 (0.1-1.0); Monocytes % 6.7 % (1.7-9.3); Neutrophils # 5.1 K/mm3 (1.8-7.8); Neutrophils % 59.2 % (37.0-80.0); Nucleated Red Blood Cells # 0 10^3/uL; Nucleated Red Blood Cells % 0 %; Platelet Count 160 K/mm3 (142-424); Red Blood Count 4.84 M/mm3 (4.60-6.20); Red Cell Distribution Width 14.1 % (11.5-17.5); Red Cell Distribution Width-SD 47.5 fL; White Blood Count 8.6 K/mm3 (4.8-10.8)
[2024-10-29 21:13] LABS: Albumin Level 4.5 g/dl (3.5-5.0); Chloride 107 mmol/L (98-107); Sodium 143 mmol/L (136-145)
[2024-10-29 21:14] LABS: Potassium 5.4 mmoL/L (3.5-5.1)
[2024-10-29 21:16] LABS: Alanine Aminotransferase 20 U/L (12-78); Alkaline Phosphatase 62 U/L (38-126); Anion Gap 13.4 mEq/L (5-15); Aspartate Amino Transferase 37 U/L (17-59); Bilirubin,Total 0.5 mg/dl (0.2-1.3); Blood Urea Nitrogen 13 mg/dl (9-20); Carbon Dioxide 28 mmol/L (22.0-30.0); Cholesterol 146 mg/dl (140-200); Estimated Glomerular Filt Rate 76 ml/min (>60); GFR (African American) 93 ML/MIN (>60); Globulin 2.3 g/dL (1.3-3.2); Total Protein,Serum 6.8 g/dl (6.3-8.2); Triglycerides 128 mg/dl (30-150); VLDL Cholesterol 26 mg/dL (0-40)
[2024-10-29 21:17] LABS: Chol/HDL Ratio 4.1 (1-3.5); Glucose 52 mg/dl (74-100); HDL Cholesterol 36 mg/dl (40-60)
== END 2024-10-29 23:59 | disposition home or self-care (01) ==
LOC: LAB 17:47
PROVIDERS: PCP Internal Medicine; Visit Provider Internal Medicine
DX: E78.2 Mixed hyperlipidemia (principal); I10 Essential (primary) hypertension; I25.10 Atherosclerotic heart disease of native coronary artery without angina pectoris
CPT/HCPCS: 80053; 80061; 85025

== ENCOUNTER 2024-10-30 12:55 | Outpatient (CLI) | payer MEDICARE, SELFPAY ==
--- NOTE | 2024-10-30 13:00 | CA_ITS ---
FINAL REPORT TECHNIQUE: Giang scale, color and spectral doppler images of the bilateral carotid arteries were obtained. CLINICAL HISTORY: DIZZINESS,GO,HTN,SMOKER,HLD COMPARISON: None FINDINGS: Peak systolic velocity in the right internal carotid artery is 74 cm/sec. The internal carotid to common carotid artery ratio is 0.53. There is no significant carotid artery stenosis and mild plaque formation. The right vertebral artery is normal in direction. Peak systolic velocity in the left internal carotid artery is 73 cm/sec. The internal carotid to common carotid artery ratio is 1.55. There is no significant carotid artery stenosis and mild plaque formation. The left vertebral artery is normal in direction. IMPRESSION: No ultrasound evidence of hemodynamically significant carotid artery stenosis. Normal peak systolic velocities and normal internal to common carotid artery ratios bilaterally. Reviewed, Interpreted and Dictated by Navya Foley MD Transcribed by Ludy Goss Authenticated and [facility]
== END 2024-10-30 23:59 | disposition home or self-care (01) ==
PROVIDERS: PCP Internal Medicine; Visit Provider Internal Medicine
DX: R42 Dizziness and giddiness (principal); G45.9 Transient cerebral ischemic attack, unspecified
CPT/HCPCS: 93880

== ENCOUNTER 2024-11-28 13:52 | Outpatient (CLI) | payer MEDICARE, SELFPAY ==
[2024-11-28 14:55] LABS: Anion Gap 10.7 mEq/L (5-15); Blood Urea Nitrogen 13 mg/dl (9-20); Calcium 9.2 mg/dl (8.4-10.2); Carbon Dioxide 29 mmol/L (22.0-30.0); Chloride 104 mmol/L (98-107); Estimated Glomerular Filt Rate 86 ml/min (>60); GFR (African American) 105 ML/MIN (>60); Glucose 80 mg/dl (74-100); Magnesium 2.1 mg/dl (1.6-2.3); Potassium 4.7 mmoL/L (3.5-5.1); Sodium 139 mmol/L (136-145)
== END 2024-11-28 23:59 | disposition home or self-care (01) ==
LOC: LAB 13:53
PROVIDERS: PCP Internal Medicine; Visit Provider Internal Medicine
DX: E87.1 Hypo-osmolality and hyponatremia (principal); I25.10 Atherosclerotic heart disease of native coronary artery without angina pectoris; I11.9 Hypertensive heart disease without heart failure
CPT/HCPCS: 36415; 80048; 83735

== ENCOUNTER 2025-04-28 10:53 | Outpatient (CLI) | payer MEDICARE, SELFPAY ==
[2025-04-28 14:19] LABS: Albumin Level 4.1 g/dl (3.5-5.0); Chloride 102 mmol/L (98-107); Sodium 140 mmol/L (136-145)
[2025-04-28 14:20] LABS: Potassium 4.2 mmoL/L (3.5-5.1)
[2025-04-28 14:22] LABS: Alanine Aminotransferase 20 U/L (12-78); Albumin/Globulin Ratio 1.6 (1.1-1.8); Anion Gap 12.2 mEq/L (5-15); Aspartate Amino Transferase 29 U/L (17-59); Blood Urea Nitrogen 11 mg/dl (9-20); Carbon Dioxide 30 mmol/L (22.0-30.0); Creatinine,Serum 0.90 mg/dl (0.66-1.25); Estimated Glomerular Filt Rate 86 ml/min (>60); GFR (African American) 104 ML/MIN (>60); Globulin 2.5 g/dL (1.3-3.2); Total Protein,Serum 6.6 g/dl (6.3-8.2)
[2025-04-28 14:23] LABS: Alkaline Phosphatase 66 U/L (38-126); Bilirubin,Total 0.3 mg/dl (0.2-1.3); Calcium 8.8 mg/dl (8.4-10.2); Cholesterol 129 mg/dl (140-200); Glucose 63 mg/dl (74-100); HDL Cholesterol 33 mg/dl (40-60); Triglycerides 202 mg/dl (30-150)
--- OUTSIDE RECORDS SUMMARY | 2025-04-30 11:17 | XMS_ITS | Clinical Summary ---
Author Organization [facility] Address [address] [place] [address] Care Team Providers Care Mechanical Engineer Name Role Phone Vinayak Barretoie Say [facility] Primary Care Provider [phone] Allergies Active Allergy Reactions Criticality Noted Date Comments Penicillins Anaphylaxis High 06/14/2021 Oxycodone-Acetaminophen Other - please d ocument in the comment field Low 06/14/2021 Medications amLODIPine (Norvasc) 5 MG tablet 03/06/2021 Active aspirin 81 MG EC tablet 12/25/2013 Active atorvastatin (Lipitor) 80 MG tablet 04/15/2021 Active gabapentin (Neurontin) 600 MG tablet Take by mouth 3 (three) times a day. 05/07/2021 Active HYDROcodone-acet aminophen ([place]) 7.5-325 MG tablet Take by mouth 3 (three) times a day. 05/07/2021 Active lisinopril 20 MG tablet 05/10/2021 Active metoprolol succinate XL (Toprol-XL) 50 MG 24 hr tablet 04/20/2021 Act jarvis omeprazole (PriLOSEC) [address] capsule Take 40 mg by mouth 1 (one) time each day. Do not crush or chew. Active Active Problems Problem Noted Date Diagnosed Date Degeneration, intervertebral disc, lumbar 2013 Low back pain 12/25/2013 Family History Medical History Relation Name Comments Stroke Other 1 Coronary artery disease Other 2 Other cancer Other 3 Relation Name Status Comments Other 1 Other 2 Other 3 Social History Tobacco Use Types Packs/Day Years Used Date Smoking Tobacco: Every Day Cigarettes 0.5 50.8 Started: 1974 Smokeless Tobacco: Never Alcohol Use Standard Drinks/Week Comments No 0 (1 standard drink = 0.6 oz pur e alcohol) Sex and Gender Information Value Date Recorded Sex Assigned at Not on file Legal Sex Male 7:31 PM EDT Gender Identity Not on file Sexual Orientation Not on file Last Filed Vital Signs Vital Sign Reading Time Taken Comments Blood Pressure 138/80 11/07/2022 11:00 AM EDT Pulse 73 09/26/2022 2:36 PM EDT Temperature 36.6 C (97.8 F) 08/30/2022 9:23 AM EST Respiratory Rate 18 08/30/2022 10:01 AM EST Oxygen Saturation 97% 09/26/2022 2:36 PM EDT Inhaled Oxygen Concentration - - Weight 73.5 kg (162 lb) 11/07/2022 11:00 AM EDT Height 170.2 cm (5' 7 ) 11/07/2022 11:00 AM EDT Body Mass Index 25.37 11/07/2022 11:00 AM EDT Plan of Treatment Health Maintenance Due Date Last Done Comments Dental Prophylaxis 1964 Dental X-Ray: Bitewings 1964 [facility]-Depression Screening 1964 [facility]-HIV Screening 1964 [facility]-Hepatitis C Screening 1964 [facility]-Medicare Annual Wellness (AWV) 1964 [facility]-Infant/Child/Adol SDOH Screenings 1964 [facility]- SDOH Screenings 1982 [facility]-Adult SDOH Screenings 1982 [facility]-DTaP,Tdap,and Td Vaccines (1 - Tdap) 12/15/1983 CT Colonography 2009 Colonoscopy 2009 FIT-DNA 2009 FIT 2009 FOBT 2009 Sigmoidoscopy 2009 [facility]-Colorectal Cancer Screening 2009 [facility]-Pneumococcal Vaccine: 50+ Years (1 of 1 - PCV) 2014 [facility]-Zoster Vaccines (1 of 2) 2014 Dental Oral Exam 2021 06/14/2021 Dental X-Ray: Full Mouth 05/15/2024 05/14/2021 [id number] Vaccine (3 - 2024- season) 2025 10/29/2020, 10/01/2020 [facility]-Influenza Vaccine (#1) 2025 [facility]-RSV Vaccine: 60+ Years or (1 - 1-dose 75+ series) 12/15/2039 [facility]-Obesity Intervention Completed 023, 09/26/2022, 07/13/2022, Additional history exists HPV Vaccines Aged Out No longer eligi ble based on patient's age to complete this topic [facility]-HIB Vaccines Aged Out No longer e ligible based on patient's age to complete this topic [facility]-Hepatitis A Vaccines Aged Out No longer eligible based on patient's age to complete this topic [facility]-IPV Vaccines Aged Out No longer e ligible based on patient's age to complete this topic [facility]-Rotavirus Vaccines Aged Out No lo nger eligible based on patient's age to complete this topic Procedures Procedure Name Priority Date/Time Associated Diagnosis Comments COMPREHENSIVE ORAL EVALUATION - NEW OR ESTABLISHED PATIENT Routine 06/14/2021 1:30 PM EST Encounter for dental examination and cleaning with abnormal findings PANORAMIC RADIOGRAPHIC IMAGE Routine 05/14/2021 8:00 AM EDT Encounter for dental examination from Last 3 Months or Most Recently Relevant to Health Maintenance Insurance DENTAL PLAN [facility]LY [facility] MEDICARE Care Teams Mechanical Engineer Relationship Specialty Start Date End Date Dawna Barreto PA [address] [place] [address] PCP - General 11/20/20
== END 2025-04-28 23:59 ==
LOC: LAB.DROPOF 04-30 10:54
PROVIDERS: PCP Internal Medicine; Visit Provider Internal Medicine
DX: I25.118 Atherosclerotic heart disease of native coronary artery with other forms of angina pectoris (principal); I10 Essential (primary) hypertension; K21.9 Gastro-esophageal reflux disease without esophagitis; Z12.5 Encounter for screening for malignant neoplasm of prostate; E78.5 Hyperlipidemia, unspecified
CPT/HCPCS: 80053; 80061; G0103